=== PATIENT | female | born 1955 | race Caucasian/White ===

== ENCOUNTER → 2022-12-26 09:14 | Outpatient (CLI) | payer MEDICARE, OTHER, SELFPAY ==
--- NOTE | 2022-12-26 09:32 | XR_ITS ---
FINAL REPORT CLINICAL HISTORY: pre-op testing..soa FINDINGS: TWO-VIEW CHEST The heart size is normal. The mediastinum is normal. The lungs are clear. There is no pneumothorax. IMPRESSION: No acute cardiopulmonary process. Reviewed, Interpreted and Dictated by Ghassan Mitchell MD Transcribed by Noemy Dahl Authenticated and [facility]
--- NOTE | 2022-12-26 09:57 | ECG_ITS ---
APPROVED REPORT Exam: Resting ECG HR:49 bpm ECG Measurements Heart Rate 49 AXES ID 149 P 48 QRSd 85 QRS 16 QT 445 T 11 QTc 415 Conclusion SINUS BRADYCARDIA BORDERLINE ECG UNCONFIRMED REPORT Electronically signed by : Jose Mo MD 12/26/2022 21:25:32
[2022-12-26 10:09] LABS: Eosinophils # 0.1 K/mm3 (0.0-0.4); Eosinophils % 1.7 % (0.1-12.0); Hematocrit 43.4 % (37.0-47.0); Hemoglobin 14.5 g/dL (12.2-16.2); Lymphocytes # 1.1 K/mm3 (0.7-4.5); Lymphocytes % 28.3 % (10-50); Mean Corpuscular HGB Conc 33.3 g/dL (31.8-35.4); Mean Corpuscular Hemoglobin 28.4 pg (27.0-31.2); Mean Corpuscular Volume 85.4 fl (81-99); Mean Platelet Volume 7.9 fl (7.4-10.4); Monocytes # 0.3 K/mm3 (0.1-1.0); Monocytes % 6.6 % (1.7-9.3); Neutrophils # 2.3 K/mm3 (1.8-7.8); Neutrophils % 62.3 % (37.0-80.0); Platelet Count 194 K/mm3 (142-424); Red Blood Count 5.09 M/mm3 (4.20-5.40); Red Cell Distribution Width 13.6 % (11.5-17.5); White Blood Count 3.7 K/mm3 (4.8-10.8)
[2022-12-26 11:23] LABS: Alanine Aminotransferase 27 U/L (12-78); Albumin Level 4.5 g/dl (3.5-5.0); Albumin/Globulin Ratio 2.1 (1.1-1.8); Alkaline Phosphatase 67 U/L (38-126); Anion Gap 9.4 mEq/L (5-15); Aspartate Amino Transferase 30 U/L (14-36); Bilirubin,Total 0.6 mg/dl (0.2-1.3); Blood Urea Nitrogen 15 mg/dl (7-17); Calcium 9.4 mg/dl (8.4-10.2); Carbon Dioxide 28 mmol/L (22.0-30.0); Chloride 105 mmol/L (98-107); Estimated Glomerular Filt Rate 83 ml/min (>60); GFR (African American) 101 ML/MIN (>60); Globulin 2.1 g/dL (1.3-3.2); Glucose 99 mg/dl (74-100); Potassium 4.4 mmoL/L (3.5-5.1); Sodium 138 mmol/L (136-145); Total Protein,Serum 6.6 g/dl (6.3-8.2)
[2023-01-08 10:31] LABS: 1,25 Dihydroxy Vitamin D 49 pg/mL (.); 1,25-Dihydroxy, Vitamin D-2 <10 pg/mL (.); 1,25-Dihydroxy, Vitamin D-3 49 pg/mL (.)
== END ==
PROVIDERS: PCP Internal Medicine; Visit Provider Podiatrist
DX: M20.12 Hallux valgus (acquired), left foot (principal); M79.672 Pain in left foot; Z01.818 Encounter for other preprocedural examination
CPT/HCPCS: 36415; 71046; 80053; 82652; 85025; 93005

== ENCOUNTER 2023-01-04 09:43 | Day surgery (SDC) | payer MEDICARE, OTHER, SELFPAY ==
[2023-01-02 12:48] VITALS: BMI 25.0
[2023-01-04] VITALS (7 sets, daily range): BP systolic 108–136; BP diastolic 60–78; PULSE 57–82; RESP 14–18; TEMP 36.5–43; O2SAT 94–96
--- NOTE | 2023-01-04 10:26 | EXP.ANES.CKL ---
[facility] Disclaimer: The information contained in this section may have been updated after the patient was seen, as this information can be updated by other users. Medical History (Updated 01/02/23 @ 12:48 by Alma Valenzuela RN) Allergies Cholecystectomy planned History of COVID-19 History of ectopic Hyperlipidemia Hyperthyroidism Surgical History History of appendectomy History of bunionectomy of right great toe History of tonsillectomy Family History (Updated 01/02/23 @ 12:48 by Alma Valenzuela RN) Father Heart disease Mother FHx: kidney cancer Breast cancer Hypertension Daughter Breast cancer Other Diabetes Social History Smoking Status: Never smoker alcohol intake: never substance use type: denies use current occupational status: retired Travel in the last 8 weeks: None [facility] Anesthesia Checklist Patient Identification Patient Identification: Arm Band and Family Structural Data Admitted From: Home Planned Operative Procedure/s: Left foot bunionectomy and hammertoe repair. Consent for Planned Operative Procedure(s) Verified: Yes Verified Documents: Surgical Consent and History and Physical NPO Status Verified Time NPO: 00:00 Airway Assessment C-Spine Mobility Assessed: Yes TMJ Mobility Assessed: Yes Dentition: Good Dentition Neurological Assessment Level of Consciousness: Awake, Alert, Appropriate and Follows Commands Anesthesia Plan Anesthesia Risk discussed: Yes ASA Class: II Anesthesia Type: MAC Preoperative Comments Pre-Operative Comments: Agrees to sciatic block.
--- NOTE | 2023-01-04 14:10 | EXP.OP.NOTE ---
Date of procedure: 01/04/23 Pre-op Diagnosis:: hallux valgus left side; 2nd hammertoe deformity; left foot pain Post-op Diagnosis:: same Procedure performed:: lapidus procedure left side; 2nd hammertoe correction left Surgeon:: Ben Lantigua DPM Anesthesia: MAC and other (popliteal) Estimated blood loss (mL): 3 Operative findings:: expected Operative note:: Patient was seen in the preop holding area. Discussion with the patient to confirm the planned procedure on Left Foot was performed and this foot was signed. All questions were answered to the patient's satisfaction. Patient was then evaluated by anesthesia department. Patient was wheeled to the operative room and placed on the operating table in the supine position. The operative site was clearly marked and then prepped and draped in the usual aseptic manner. Timeout was performed in the room and we confirmed the planned procedure and the patient and we all were in agreement. The attention was directed to the patient's surgical foot and Esmarch bandage used to extended patient's foot and ankle and the tourniquet inflated to 250 mils mercury about the malleoli. A dorsal linear longitudinal incision was made from the metatarsal cuneiform joint following and medial with the extensor hallucis longus tendon to the dorsal aspect of the proximal hallux. Incision was deepened to subcutaneous tissues being careful to preserve protect vital neurovascular structures and bleeders cauterized with the Bovie as necessary. Attention was directed to the first metatarsal phalangeal joint where a dorsal linear longitudinal capsulotomy was made medial and parallel with the extensor hallucis longus tendon. The medial eminence and dorsal head of the first metatarsal were remodeled with sagittal bone saw. At this point blunt and sharp dissection was carried down to the first interspace and the fibular sesamoid was freed of soft tissue attachments and performed a lateral capsulotomy. There was good range of motion noted at the first MPJ at this level. Small erosions of degenerative changes are noted of cartilage 1st MPJ; decision to apply Augment between 1st Metatarsal and cuneiform to facilitate fusion, as well as in first MPJ space for arthritis, promote healing, decrease pain and swelling post operatively. Attention now was directed to the metatarsal cuneiform joint which was dissected down to the joint capsule and freed of soft tissue attachments. Sagittal bone saw was used to resect portion of the metatarsal cunifeiform joint carlitage and bone in the multiple planes. At this point the base of the metatarsal and the cuneiform were placed in proximity to each other with bleeding sides in a corrected position and fixation was accomplished using a cannulated screw and a speed staple. There is good alignment noted for the entire correction of the procedure and it was deemed to be appropriate for closure so irrigated the wound with copious amount of sterile normal saline and then closed in layers with 2-0 Vicryl 3-0 Vicryl and 3-0 nylon. Attention was directed to the second toe. A dorsal linear linear logical incision was made on the dorsal aspect of the proximal inner phalangeal joint and extended to the metatarsal phalangeal joint. Care was taken to preserve protect vital neurovascular structures bleeders cauterized with Bovie as necessary. At this point a tenotomy and capsulotomy was performed of the proximal to phalangeal joint of the second toe. Then the head of the proximal phalanx was resected with sagittal bone saw and rongeurs and solid rongeurs were also used to resect the cartilaginous base of the middle phalanx. Attention directed at the metatarsal phalangeal joint and freed up of soft tissue attachments and contractures at that level with McClamary elevator. Fixation was accomplished by directing a K wire through the middle and distal phalanges of the distal aspect of the 2nd toe and then retrog
--- NOTE | 2023-01-04 15:08 | SUR.PHASEII ---
1432 pt and state they have crutches that the patient can use at home.
== END 2023-01-04 14:50 | disposition home or self-care (01) ==
PROVIDERS: PCP Internal Medicine; Visit Provider Podiatrist
PROC: (CPT 28285; principal; 2023-01-04 11:30)
DX: M20.12 Hallux valgus (acquired), left foot (principal); M20.42 Other hammer toe(s) (acquired), left foot; M20.22 Hallux rigidus, left foot; Z79.899 Other long term (current) drug therapy
CPT/HCPCS: 28285; 28297; 28705; 96374; C1713; C1734; J2405; J2704